=== PATIENT | female | born 2000 | race Caucasian/White ===

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

== ENCOUNTER 2023-07-12 21:37 | Emergency (ER) | payer OTHER, MEDICAID ==
[~2023-07-12] VITALS: Ht 165 cm; Wt 55.0 kg
[~2023-07-12 21:37] MED LIST changes: +ACHD5005 PO; +ACYC-108 PO; +DOXY100T2 PO; +LIDO30CR44 TP
[2023-07-12] MEDS ORDERED: NS IV 1000 ML 1,000 ML IV STA (21:50)
--- NOTE | 2023-07-12 21:54 | ED Headache ---
General Chief Complaint: Head/Cervical Problems Stated Complaint: HEAD PAIN Source: patient Exam Limitations: no limitations (VISHAL BRENNAN) History of Present Illness Date Seen by Provider: Jul 12, 2023 Time Seen by Provider: 21:52 Initial Comments Patient is a 23-year-old female who presents ED with left-sided head pain. Head pain over the past 2 weeks. Pain is described as sharp and stabbing and intermittent. She states the pain became worse this morning when she woke up. Pain has been intermittent throughout the day. She has been taken Tylenol, ibuprofen, naproxen and Midol without much improvement. She has vomited intermittently over the past 2 weeks. Strong family history of migraines with a history of headaches. She states this headache feels somewhat similar however seems to be worse. She reports photophobia. Denies of any unilateral weakness, sensory changes, chest pain, shortness of breath, fever, chills or neck pain. Denies of any visual loss. She does report some mild blurry vision. (VISHAL BRENNAN) Allergies and Home Medications Allergies Coded Allergies: mupirocin (Unverified Allergy, Mild, HIVES, 01/09/07) Penicillins (Verified Allergy, Unknown, 10/15/16) ondansetron (Verified Allergy, Unknown, 07/11/19) diphenhydramine (Unverified Adverse Reaction, Mild, MOTHER STATES MAKES HER HYPER AND SOMETIMES NOEL, 01/09/07) pseudoephedrine (Unverified Adverse Reaction, Mild, MOTHER STATES MAKES HER HYPER AND SOMETIMES NOEL, 01/09/07) zinc acetate (Unverified Adverse Reaction, Mild, MOTHER STATES MAKES HER HYPER AND SOMETIMES NOEL, 01/09/07) Patient Home Medication List Home Medication List Reviewed: Yes (VISHAL BRENNAN) Clindamycin HCl (Clindamycin HCl) 300 Mg Capsule, 300 MG PO QID Prescribed by: ADRIA TAYLOR on 07/12/232242 Ketorolac Tromethamine (Ketorolac Tromethamine) 10 Mg Tablet, 10 MG PO TID Prescribed by: ADRIA TAYLOR on 07/12/232242 Discontinued Medications Acyclovir (Acyclovir) 200 Mg Capsule, 200 MG PO 5XD Discontinued Reason: No Longer Taking Prescribed by: BETO KEARNEY on 10/22/201209 Last Action: Discontinued Clindamycin HCl (Clindamycin HCl) 300 Mg Capsule, 300 MG PO QID Prescribed by: ADRIA TAYLOR on 07/12/232234 Doxycycline Hyclate (Doxycycline Hyclate) 100 Mg Tablet, 100 MG PO BID Discontinued Reason: No Longer Taking Prescribed by: BETO KEARNEY on 10/22/201209 Last Action: Discontinued Hydrocodone/Acetaminophen (Hydrocodone-Acetamin 5-325 mg) 1 Each Tablet, 1 EACH PO Q4H PRN for PAIN-MODERATE (5-7) Discontinued Reason: No Longer Taking Prescribed by: BETO KEARNEY on 10/22/201210 Last Action: Discontinued Ketorolac Tromethamine (Ketorolac Tromethamine) 10 Mg Tablet, 10 MG PO TID Prescribed by: ADRIA TAYLOR on 07/12/232234 Lidocaine (Lidocaine) 30 Gm Cream..g., 30 GM TP TID PRN for PAIN-MILD (1-4) Discontinued Reason: No Longer Taking Prescribed by: BETO KEARNEY on 10/22/201209 Last Action: Discontinued Metronidazole (Flagyl) 500 Mg Tablet, 500 MG PO BID Discontinued Reason: No Longer Taking Prescribed by: CARMENCITA RUVALCABA on 09/22/201802 Last Action: Discontinued Montelukast Sodium (Singulair) 10 Mg Tab, 10 MG PO DAILY, (Reported) Discontinued Reason: No Longer Taking Entered as Reported by: MEG CAREY on 08/15/142012 Last Action: Discontinued Promethazine HCl (Phenergan) 12.5 Mg Supp.rect, 12.5 MG RC Q6H PRN for NAUSEA/VOMITING Discontinued Reason: No Longer Taking Prescribed by: ALEJANDRO WYNN on 07/12/19 0035 Last Action: Discontinued Tramadol HCl (Tramadol HCl) 50 Mg Tablet, 50 MG PO Q6H PRN for PAIN Discontinued Reason: No Longer Taking Prescribed by: CARMENCITA RUVALCABA on 09/22/201817 Last Action: Discontinued [Albuterol inhaler] , (Reported) Discontinued Reason: No Longer Taking Entered as Reported by: ROSS FARNSWORTH on 10/04/16 0003 Last Action: Discontinued [Qvar] , (Reported) Discontinued Reason: No Longer Taking Entered as Reported by: ROSS FARNSWORTH on 10/04/16 0003 Last Action: Discontinued Review of Systems Review of Systems Constitutional: No chills, No diaphoresis Eyes: Denies Blurred Vision, Denies Drainage, Denies Decreased Acuity Ears, Nose, Mouth, Throat: denies ear pain, denies ear discharge Respiratory: No cough, No dyspnea on exertion Cardiovascular: No chest pain Gastrointestinal: No abdominal pain, No constipation, No diarrhea, No nausea, No vomiting Genitourinary: No decreased output, No discharge Musculoskeletal: No back pain, No joint pain Skin: No change in color, No change in hair/nails Psychiatric/Neurological: Headache (VISHAL BRENNAN) All Other Systems Reviewed Negative Unless Noted: Yes (VISHAL BRENNAN) Past Qncygag-Hcxymi-Zuulxk Hx Patient Social History Tobacco Use?: Yes Substance use?: Yes Substance type: Marijuana Alcohol Use?: No Pt feels they are or have been: No (VISHAL BRENNAN) Immunizations Up To Date PED Vaccines UTD: Yes First/Initial COVID19 Vaccinat: NA (VISHAL BRENNAN) Seasonal Allergies Seasonal Allergies: No (VISHAL BRENNAN) Past Medical History Surgery/Hospitalization HX: T/A, ASTHMA, PID, OVARIAN CYST, HEPATITIS Surgeries: Yes Adenoidectomy, Tonsillectomy Respiratory: Yes Asthma Cardiac: No Neurological: No Reproductive Disorders: Yes Female Reproductive Disorders: Pelvic Inflammatory Dis, Ovarian Cyst Sexually Transmitted Disease: No Genitourinary: No Gastrointestinal: No Hepatitis Musculoskeletal: No Endocrine: No HEENT: No Cancer: No Psychosocial: Yes Depression Integumentary: No Blood Disorders: No (VISHAL BRENNAN) Family Medical History No Pertinent Family Hx (VISHAL BRENNAN) Physical Exam Vital Signs Vital Signs - First Documented 07/12/23 21:43 Temp 36.6 Pulse 132 Resp 16 B/P (MAP) 114/68 (83) Pulse Ox 96 O2 Delivery Room Air (ANKIT VILLEGAS DO) Vital Signs Capillary Refill : (VISHAL BRENNAN) Height, Weight, BMI Height: 5'6.00" Weight: 107lbs. oz. 48.653728ss; 19.00 BMI Method:Stated General Appearance: WD/WN, no apparent distress HEENT: PERRL/EOMI, normal ENT inspection, TMs normal, pharynx normal, other (poor dentition with extensive decay throughout. Mild gum erythema left upper) Neck: non-tender, full range of motion, supple Cardiovascular: regular rate, rhythm, no edema, no gallop, no JVD Respiratory: chest non-tender, lungs clear, normal breath sounds, no respiratory distress, no accessory muscle use Gastrointestinal: normal bowel sounds, non tender, soft Back: normal inspection, no CVA tenderness Extremities: normal range of motion, non-tender, normal inspection, no pedal edema, no calf tenderness (VISHAL BRENNAN) Progress/Results/Core Measures Results/Orders Medications Given in ED Current Medications Medications Dose Ordered Sig/Kaveh Route Start Time Stop Time Status Last Admin Dose Admin Ketorolac Tromethamine 30 mg ONCE ONCE IVP 07/12/23 22:00 07/12/23 22:01 DC 07/12/23 21:58 30 MG Prochlorperazine Edisylate 10 mg ONCE ONCE IV 07/12/23 22:00 07/12/23 22:01 DC 07/12/23 21:58 10 MG (ANKIT VILLEGAS DO) Vital Signs/I&O 07/12/23 07/12/23 21:43 22:40 Temp 36.6 36.5 Pulse 132 89 Resp 16 16 B/P (MAP) 114/68 (83) 116/69 Pulse Ox 96 97 O2 Delivery Room Air Room Air 07/13/23 00:00 Intake Total 1000 ml Balance 1000 ml (ANKIT VILLEGAS DO) Departure Communication (PCP) Patient with left-sided head pain. She is also reports some left ear pain and dental pain. Pain over the past 2 weeks. Photophobia with vomiting. On exam she has poor dentition with extensive decay. Gum swelling without obvious fluct uant mass. No erythema or swelling of the face. Left TM with mild erythema. No scalp tenderness. Pain described as sharp left-sided head. No pain in the neck. No pain with swallowing. Tolerating secretions. History of migraines states this feels very similar however the pain has not improved with anti- inflammatories. Concern that patient pain could be secondary to her teeth. Left TM with mild erythema however not strong evidence of otitis media. She did receive a migraine cocktail with near resolution of pain. Will discharge with clindamycin with a allergies to penicillins. She was given a dose here. Recommend dental outpatient follow-up. Continue with anti-inflammatories at home. She was requesting something different than she has been taken we will provide a few days worth of Toradol. She did receive IV dose here and states it helped with her pain much better than what she has been taken at home. She has no focal neural deficits or neurological red flag findings suggesting emergent CT scan of her head. She had no meningeal signs. She appears nontoxic. She was tachycardic but did improve after recheck and medication. Provided outpatient dental follow-up. Return precaution were discussed such as worsening head pain, visual change, unilateral weakness or sensory changes. She agrees with plan of action (VISHAL BRENNAN) Impression Primary Impression: Migraine Additional Impression: Tooth ache Disposition: HOME, SELF-CARE Condition: Stable Departure-Patient Inst. Referrals: RAMSES FORRESTER MD (PCP/Family) Primary Care Physician Patient Instructions: Migraines (DC) Add. Discharge Instructions: Take antibiotics as prescribed. Follow-up with the dentist All discharge instructions reviewed with patient and/or family. Voiced understanding. Scripts Ketorolac Tromethamine (Ketorolac Tromethamine) 10 Mg Tablet 10 MG PO TID for Pain, #15 TAB Prov: VISHAL BRENNAN 07/12/23 Clindamycin HCl (Clindamycin HCl) 300 Mg Capsule 300 MG PO QID for 7 Days, #28 CAP Prov: VISHAL BRENNAN 07/12/23 ATTENDING PHYSICIAN NOTE: I WAS PHYSICALLY PRESENT ER PHYSICIAN, BUT I WAS NOT INVOLVED IN ANY DECISION MAKING OR ANY CARE OF THIS PATIENT AND I AM NOT COLLABORATING PHYSICIAN. (ANKIT VILLEGAS DO) VISHAL BRENNAN Jul 12, 2023 21:54 ANKIT VILLEGAS DO Jul 13, 2023 00:51
[2023-07-12] MEDS ORDERED: diphenhydrAMINE INJ 50 MG/ML VIAL IVP ONE (22:00)
[2023-07-12] MEDS ORDERED: KETOROLAC INJ 30 MG/ML VIAL IVP ONE (22:00)
[2023-07-12] MEDS ORDERED: PROCHLORPERAZINE 10 MG/2ML INJ (COMPAZINE) IV ONE (22:00)
[2023-07-12] MEDS ORDERED: CLINDAMYCIN 150 MG CAPSULE PO STA (22:33)
[2023-07-12] MEDS ORDERED: KETO10TA PO ×2 (22:35→22:43)
[2023-07-12] MEDS ORDERED: CLIN-144 PO ×2 (22:35→22:43)
[2023-07-12 22:40] VITALS: BP 116/69
== END 2023-07-12 22:42 | disposition home or self-care (01) ==
LOC: EDUNIT# 21:37 → ER 21:39
DX: G43.909 Migraine, unspecified, not intractable, without status migrainosus (principal); K08.89 Other specified disorders of teeth and supporting structures; R00.0 Tachycardia, unspecified; Z88.0 Allergy status to penicillin